=== PATIENT | female | born 1975 | race Caucasian/White ===

== ENCOUNTER 2019-06-26 18:30 | Emergency (ER) | payer OTHER ==
[~2019-06-26] VITALS: Ht 157.5 cm; Wt 106.6 kg
[2019-06-26 19:10] VITALS: BP_SYST 158
[2019-06-26] MEDS ORDERED: DIPHENHYDRAMINE INJ 50 MG/ML VIAL IM ONE (19:30)
[2019-06-26 20:50] VITALS: BP_SYST 114
== END 2019-06-26 20:50 | disposition home or self-care (01) ==
LOC: SED 18:30
DX: S46.911A Strain of unspecified muscle, fascia and tendon at shoulder and upper arm level, right arm, initial encounter (principal); S09.90XA Unspecified injury of head, initial encounter; R03.0 Elevated blood-pressure reading, without diagnosis of hypertension; L50.9 Urticaria, unspecified; W07.XXXA Fall from chair, initial encounter; Y93.89 Activity, other specified; Y92.89 Other specified places as the place of occurrence of the external cause; Y99.8 Other external cause status
CPT/HCPCS: 70450; 73030; 81025; 96372; 99284; J1200

== ENCOUNTER 2021-10-30 17:46 | Emergency (ER) | payer OTHER ==
[~2021-10-30] VITALS: Ht 157.5 cm; Wt 106.6 kg
[2021-10-30 17:46] VITALS: BP_SYST 159
--- NOTE | 2021-10-30 17:46 | NUR ---
BROUGHT BACK TO BED #5 VIA WHEELCHAIR, TRIAGED. REPORT GIVEN TO SHIVAM
--- NOTE | 2021-10-30 17:50 | NUR ---
Patient for acute constant left ankle pain after stepping of curb onto an uneven street and twisting the ankle inwards. Pain 10/10 pedal pulse present
--- NOTE | 2021-10-30 18:27 | NUR ---
LOUIE Hill at bedside examining patient.
[2021-10-30] MEDS ORDERED: ACETAMINOPHEN 500 MG TABLET ONE (18:41)
[2021-10-30] MEDS ORDERED: IBUP-1969 PO (18:43)
[2021-10-30] MEDS ORDERED: ACETAMINOPHEN 500 MG TABLET PO ONE (18:45)
--- NOTE | 2021-10-30 19:02 | NUR ---
SHORT LEG POSTERIOR splint applied to LEFT ANKLE . PEDAL pulse noted. Capillary refill <3seconds. Patient has ability to move non-splinted digits. Has sensation present to affected site. Skin color within normal limits. Applied for pain management control.
--- NOTE | 2021-10-30 19:54 | NUR ---
Patient given written and verbal discharge instructions and verbalizes understanding. ER MD discussed with patient the results and treatment provided. Patient in stable condition. ID arm band removed. Rx of IBUPROFEN given. Patient educated on pain management and to follow up with PMD. Pain Scale 0/10 Opportunity for questions provided and answered. Medication side effect fact sheet provided.
[2021-10-30 20:48] VITALS: BP_SYST 125
== END 2021-10-30 19:54 | disposition home or self-care (01) ==
LOC: SED 17:46
DX: M25.572 Pain in left ankle and joints of left foot (principal); E11.9 Type 2 diabetes mellitus without complications; I10 Essential (primary) hypertension
CPT/HCPCS: 99283; 99284

== ENCOUNTER 2023-06-07 20:17 | Emergency (ER) | payer OTHER ==
[~2023-06-07] VITALS: Ht 157.5 cm; Wt 108.9 kg
[~2023-06-07 20:17] MED LIST: IBUP-1969 PO
[2023-06-07 20:23] VITALS: BP_SYST 152; PULSE 106; RESP 22; TEMP 98.7; O2SAT 100
[2023-06-07] MEDS ORDERED: MECLIZINE HCL 25 MG TABLET (ANITVERT) PO ONE (20:45)
[2023-06-07] MEDS ORDERED: METOCLOPRAMIDE HCL 10 MG/2 ML VIAL IVP ONE (20:45)
[2023-06-07 21:28] LABS: BASOPHILS # (AUTO) 0.1 K/uL (0.0-0.2); BASOPHILS % (AUTO) 0.5 % (0.0-2.0); EOSINOPHILS # (AUTO) 0.2 K/uL (0.0-0.4); EOSINOPHILS % (AUTO) 1.8 % (0.0-4.0); HEMATOCRIT 36.7 % (36-48); HEMOGLOBIN 11.3 g/dL (12.0-16.0); LYMPHOCYTES # (AUTO) 2.1 K/uL (1.0-5.5); LYMPHOCYTES % (AUTO) 21.8 % (20.5-51.5); MEAN CORPUSCULAR HEMOGLOBIN 20 pg (27-31); MEAN CORPUSCULAR HGB CONC 31 % (32-36); MEAN CORPUSCULAR VOLUME 65 fL (79.0-98.0); MONOCYTES # (AUTO) 0.6 K/uL (0.0-1.0); MONOCYTES % (AUTO) 6.5 % (1.7-9.3); NEUTROPHILS # (AUTO) 6.7 K/uL (1.8-7.7); NEUTROPHILS % (AUTO) 69.4 % (40.0-70.0); PLATELET COUNT (AUTO) 260 K/uL (130-430); RED BLOOD CELL COUNT(AUTO) 5.68 MIL/uL (4.2-6.2); WHITE BLOOD COUNT (AUTO) 9.7 K/uL (4.8-10.8)
[2023-06-07 21:40] LABS: ANION GAP 6 (5-15); CALCIUM 9.4 mg/dL (8.4-11.0); CARBON DIOXIDE 29 mmol/L (23-29); CHLORIDE 99 mmol/L (98-107); CREATININE 0.79 mg/dL (0.55-1.30); GFR AFRICAN AMERICAN 100 mL/min (>90); GLUCOSE 195 mg/dL (74-106); POTASSIUM 3.7 mmol/L (3.5-5.1); SODIUM SERUM 134 mmol/L (136-145); UREA NITROGEN, BLOOD 8 mg/dL (8-21)
[2023-06-07 21:45] LABS: GFR NON AFRICAN-AMERICAN 83 mL/min (>90)
[2023-06-07 21:56] LABS: ALANINE AMINOTRANSFERASE 44 U/L (12-78); ALBUMIN 3.6 g/dL (3.4-4.8); ASPARTATE AMINOTRANSFERASE 26 U/L (10-37); TOTAL BILIRUBIN 0.3 mg/dL (0.0-1.0); TOTAL PROTEIN, SERUM 7.1 g/dL (6.4-8.3)
[2023-06-07] MEDS ORDERED: MECL-261 PO (21:57)
[2023-06-07 22:10] VITALS: BP_SYST 146; PULSE 113; RESP 18; O2SAT 95
[2023-06-07 22:14] LABS: ANISOCYTOSIS 1+; HYPOCHROMASIA 1+; OVALOCYTES MODERATE; POLYCHROMASIA 1+
[2023-06-07 22:16] LABS: STOMATOCYTES FEW
== END 2023-06-07 22:10 | disposition home or self-care (01) ==
LOC: SED 20:17
DX: R42 Dizziness and giddiness (principal); R51.9 Headache, unspecified; R11.10 Vomiting, unspecified; E11.9 Type 2 diabetes mellitus without complications; I10 Essential (primary) hypertension; E78.5 Hyperlipidemia, unspecified; Z79.899 Other long term (current) drug therapy
CPT/HCPCS: 99285; 96374; 70450; 71045; 80053; 82962; 85025; 84484; 36415; 93005; 76376; J8597; J2765

== ENCOUNTER 2024-06-08 13:11 | Emergency (ER) | payer OTHER ==
[~2024-06-08 13:11] MED LIST changes: +MECL-261 PO
[2024-06-08 13:28] VITALS: BP_SYST 118; PULSE 89; RESP 18; TEMP 98.3; O2SAT 98
[2024-06-08 15:04] VITALS: BP_SYST 118; PULSE 89; RESP 18; TEMP 98.3; O2SAT 98
== END 2024-06-08 15:06 | disposition left against medical advice (07) ==
LOC: SED 13:11
DX: R51.9 Headache, unspecified (principal); H57.13 Ocular pain, bilateral; R06.02 Shortness of breath; R42 Dizziness and giddiness; E11.9 Type 2 diabetes mellitus without complications; I10 Essential (primary) hypertension; E78.5 Hyperlipidemia, unspecified
CPT/HCPCS: 99281